=== PATIENT | female | born 1940 | race Caucasian/White ===

== ENCOUNTER → 2016-09-16 | Outpatient (CLI) | payer MEDICARE, OTHER ==
[2016-09-16 08:31] LABS: Basophils # (auto) 0 uL; Basophils % (auto) 0.3 % (0.0-2.0); Eosinophils # (auto) 0.5 uL; Eosinophils % (auto) 6.3 % (0.0-7.0); Hematocrit 39.5 % (36.0-46.0); Hemoglobin 13.1 g/dL (12.2-16.2); Lymphocytes % (auto) 12.3 % (10.0-50.0); Mean Corpuscular Hgb Conc. 33.1 g/dL (32.0-36.0); Mean Corpuscular Volume 87.4 fL (80.0-100.0); Mean Platelet Volume 8.5 fL (7.4-10.4); Monocytes # (auto) 0.5 uL; Monocytes % (auto) 5.9 % (0.0-12.0); Neutrophils # (auto) 6.3 uL; Neutrophils % (auto) 75.2 % (37.0-80.0); Platelet Count (auto) 455 10^3/uL (140-450); Red Cell Distribution Width 14.1 % (11.6-16.0); White Blood Cell 8.3 10^3/uL (4.4-10.8)
[2016-09-16 09:08] LABS: Albumin 3.4 g/dL (3.4-5.0); BUN/Creatinine Ratio 21.3; Bilirubin, Total 0.4 mg/dL (0.2-1.0); Calcium 8.8 mg/dL (8.5-10.1); Total Protein 7.4 g/dL (6.4-8.2); Uric Acid 3.5 mg/dL (2.6-6.0)
== END | disposition home or self-care (01) ==
LOC: LAB 07:19
PROVIDERS: ATTEND Internal Medicine
DX: E78.5 Hyperlipidemia, unspecified (principal); M25.569 Pain in unspecified knee; F32.9 Major depressive disorder, single episode, unspecified
CPT/HCPCS: 36415; 80053; 80061; 82043; 84439; 84443; 84550; 85025

== ENCOUNTER → 2017-01-15 | Outpatient (CLI) | payer MEDICARE, OTHER | END | disposition home or self-care (01) | LOC: LAB 08:32 | PROVIDERS: ATTEND Internal Medicine | DX: D47.3 Essential (hemorrhagic) thrombocythemia (principal) | CPT/HCPCS: 36415 ==

== ENCOUNTER → 2017-02-13 | Outpatient (CLI) | payer MEDICARE, OTHER ==
[2017-02-13 10:14] LABS: Basophils # (auto) 0 uL; Basophils % (auto) 0.3 % (0.0-2.0); CONDITION Y; Eosinophils # (auto) 0.3 uL; Eosinophils % (auto) 2.8 % (0.0-7.0); Hematocrit 38.1 % (36.0-46.0); Hemoglobin 12.7 g/dL (12.2-16.2); Lymphocytes # (auto) 1.3 uL; Mean Corpuscular Hemoglobin 28.8 pg (28.0-32.0); Mean Corpuscular Hgb Conc. 33.3 g/dL (32.0-36.0); Mean Corpuscular Volume 86.5 fL (80.0-100.0); Mean Platelet Volume 7.8 fL (7.4-10.4); Monocytes # (auto) 0.6 uL; Neutrophils % (auto) 77.9 % (37.0-80.0); Platelet Count (auto) 464 10^3/uL (140-450); White Blood Cell 10.3 10^3/uL (4.4-10.8)
[2017-02-13 10:30] LABS: Albumin 3.4 g/dL (3.4-5.0); BUN/Creatinine Ratio 15.7; Bilirubin, Total 0.5 mg/dL (0.2-1.0); Calcium 8.8 mg/dL (8.5-10.1); Potassium 4.6 mmol/L (3.5-5.1); Total Protein 8.2 g/dL (6.4-8.2)
[2017-02-13 11:56] LABS: Wright Stain Ready for Review
== END | disposition home or self-care (01) ==
LOC: LAB 09:40
PROVIDERS: ATTEND Internal Medicine
DX: D47.3 Essential (hemorrhagic) thrombocythemia (principal); I10 Essential (primary) hypertension
CPT/HCPCS: 36415; 80053; 82728; 83540; 83550; 83615; 85025; 85652; 86141

== ENCOUNTER → 2017-02-25 | Outpatient (CLI) | payer MEDICARE, OTHER | END | disposition home or self-care (01) | LOC: LAB 09:55 | PROVIDERS: ATTEND Internal Medicine | DX: D69.1 Qualitative platelet defects (principal); R97.8 Other abnormal tumor markers | CPT/HCPCS: 82105 ==

== ENCOUNTER 2019-04-07 13:43 | Inpatient (IN) | payer MEDICARE, OTHER ==
[~2019-04-07] VITALS: Ht 154.9 cm; Wt 64.8 kg
[2019-04-07] MEDS ORDERED: SODIUM CHLORIDE 0.9% 1,000 ML IV ONE (15:16)
[2019-04-07] MEDS ORDERED: ONDANSETRON HCL 4 MG/2 ML VIAL IV ONE (16:15)
[2019-04-07] MEDS ORDERED: MORPHINE SULFATE 4 MG/ML SYR/VIAL IV ONE (16:15)
[2019-04-07 16:17] LABS: Alanine Aminotransferase 19 U/L (13-56); Albumin 3.2 g/dL (3.4-5.0); Anion Gap 4 (5-15); Blood Urea Nitrogen 27 mg/dL (7-18); Calcium 8.8 mg/dL (8.5-10.1); Carbon Dioxide 27 mmol/L (21-32); Chloride 108 mmol/L (98-107); Glucose 103 mg/dL (74-106); Potassium 4.7 mmol/L (3.5-5.1); Sodium 139 mmol/L (136-145)
[2019-04-07 16:18] LABS: INR < 0.93 (0.9-1.15); Partial Thromboplastin Time 25.6 sec (23.64-32.05)
[2019-04-07 16:22] LABS: Alkaline Phosphatase 98 U/L (45-117); Aspartate Aminotransferase 21 U/L (15-37); BUN/Creatinine Ratio 27.3; Bilirubin, Total 0.3 mg/dL (0.2-1.0); GFR African American 70 mL/min; GFR Non-African American 58 mL/min; Total Protein 7.2 g/dL (6.4-8.2)
[2019-04-07 16:26] LABS: Basophils # (auto) 0 uL; Basophils % (auto) 0.1 % (0.0-2.0); Eosinophils # (auto) 0 uL; Lymphocytes # (auto) 0.5 uL; Lymphocytes % (auto) 2.3 % (10.0-50.0); Red Cell Distribution Width 15.5 % (11.8-14.3); White Blood Cell 21.4 10^3/uL (4.4-10.8)
[2019-04-07 16:31] LABS: Hematocrit 36.5 % (36.0-46.0); Mean Corpuscular Hemoglobin 30.1 pg (28.0-32.0); Mean Corpuscular Hgb Conc. 32.9 g/dL (32.0-36.0); Mean Corpuscular Volume 91.3 fL (80.0-100.0); Monocytes # (auto) 0.5 uL; Monocytes % (auto) 2.3 % (0.0-12.0); Neutrophils # (auto) 20.4 uL; Neutrophils % (auto) 95.3 % (37.0-80.0); Platelet Count (auto) 457 10^3/uL (140-450); Red Blood Cells 3.99 10^6/uL (4.0-5.20)
[2019-04-07] MEDS ORDERED: HYDROmorphone HCL 2 MG/ML VL IV ONE (17:00)
[2019-04-07] MEDS: SODIUM CHLORIDE 0.9% 1,000 ML IV SCH (19:04)
[2019-04-07] MEDS ORDERED: PROMETHAZINE HCL 25 MG/ML 1ML IV PRN (19:15)
[2019-04-07] MEDS ORDERED: HYDROcodone-ACET 5/325MG TAB PO PRN (19:15)
[2019-04-07] MEDS ORDERED: ACETAMINOPHEN 500 MG TAB PO PRN (19:15)
[2019-04-07] MEDS ORDERED: cefTRIAXone 1GM/50ML D5W 50 ML IV ONE (19:30)
[2019-04-07 19:34] VITALS: BP 144/76
--- NOTE | 2019-04-07 20:00 | NUR ---
MS admit from ER RADAMES FAY admitted to tele/MS after SBAR received. Patient oriented to BLAKE MORGAN RN primary RN, unit, room, bed, and unit policies regarding patient care and visiting hours. No s/s of distress or SOB noted. Patient complains of pain to her right hip. Will medicate patient as ordered. Bed locked, left in lowest position with side rails up x2. Call light left within reach. Patient weighed by bedscale and encouraged to call if they need something. All questions and concerns addressed, patient verbalized understanding. Will continue to monitor Q 1hr and PRN. Note:
--- NOTE | 2019-04-07 22:01 | NUR ---
Med Rec and Advanced Directives Patients family will bring in list of medications and Advanced Directive in the morning.
[2019-04-07] MEDS: MORPHINE SULFATE 4 MG/ML SYR/VIAL IV PRN (22:15)
--- NOTE | 2019-04-07 23:08 | NUR ---
Respiratory note: ASSESSED PT FOR PRN MED NEB TX. PT IS CURRENTLY ON 2 L/M NC: HR 78, RR 18, SPO2 96%. PT SHOWS NO S/S OF SOB OR RESPIRATORY DISTRESS. MED NEB TX NOT INDICATED AT THIS TIME. WILL CONTINUE TO MONITOR.
[2019-04-08] MEDS ORDERED: HYDROmorphone HCL 2 MG/ML VL IV ONE (02:45)
[2019-04-08 05:00] VITALS: BP 158/74
[2019-04-08] MEDS: SODIUM CHLORIDE 0.9% 1,000 ML IV SCH ×2 (05:04→15:04)
[2019-04-08] MEDS: MORPHINE SULFATE 4 MG/ML SYR/VIAL IV PRN (06:24)
--- NOTE | 2019-04-08 07:45 | NUR ---
Opening Shift Note Assumed care of patient, awake and alert. No S/S of distress/SOB, 10/10 right hip pain. Patient been medicated with Morphine IV, will medicate with [place] PO as ordered. Instructed on POC and to call for assist PRN, will continue to monitor for changes Q1hr and PRN.
--- NOTE | 2019-04-08 08:19 | NUR ---
Patient stated no relief of pain on the right hip 04/21. Morphine IV and [place] PO have been given but no relief. call or contact centre operator hospitalist Dr. Chan paged and returned call. Orders received. Will continue care.
[2019-04-08 09:00] VITALS: BP 137/83
--- NOTE | 2019-04-08 09:40 | NUR ---
REPORT RECEIVED REPORT FROM NATE ARGUETA. PATIENT AWAKE AND ALERT. BED LOW/LOCKED POSITION, BED RAILS UP X2. WILL CONTINUE TO MONITOR
[2019-04-08] MEDS: cefTRIAXone 1GM/50ML D5W 50 ML IV SCH (09:41)
[2019-04-08] MEDS: PANTOPRAZOLE 40 MG TAB PO SCH (09:41)
[2019-04-08] MEDS: HYDROmorphone HCL 2 MG/ML VL IV PRN ×2 (09:42→13:44)
--- NOTE | 2019-04-08 10:03 | NUR ---
Respiratory note: ASSESSED PT FOR PRN MED NEB TX. PT IS CURRENTLY ON 2 L/M NC: HR 76, RR 18, SPO2 95%. PT SHOWS NO S/S OF SOB OR RESPIRATORY DISTRESS. MED NEB TX NOT INDICATED AT THIS TIME. WILL CONTINUE TO MONITOR.
--- NOTE | 2019-04-08 11:41 | NUR ---
MD ROUNDS DR CAMARA AT BEDSIDE DISCUSSING POC WITH PATIENT AND FAMILY. ALL QUESTIONS/CONCERNS ANSWERED. NEW ORDERS RECEIVED/CARRIED OUT. WILL CONTINUE TO MONITOR.
[2019-04-08 11:56] LABS: Urine Bacteria NONE SEEN /hpf (None Seen); Urine Blood Negative /uL (Negative); Urine WBC 1 /hpf (0 - 5)
[2019-04-08 13:00] VITALS: BP 133/74
[2019-04-08] MEDS ORDERED: LORA1TAB12 PO (13:02)
[2019-04-08] MEDS ORDERED: MIRT30TA OR (13:08)
[2019-04-08] MEDS ORDERED: BUPR-40 PO (13:08)
[2019-04-08] MEDS ORDERED: PERCOT PO (13:08)
[2019-04-08] MEDS ORDERED: ATOR40TA52 PO (13:08)
[2019-04-08] MEDS ORDERED: FOLI1TAB6 PO (13:08)
[2019-04-08] MEDS ORDERED: VENL150C2 PO (13:08)
[2019-04-08] MEDS ORDERED: MULTTAB5 OR (13:08)
[2019-04-08] MEDS ORDERED: HYDROmorphone HCL 2 MG/ML VL IV PRN ×2 (14:45→16:30)
[2019-04-08] MEDS ORDERED: fentaNYL CITRATE 100 MCG/2 ML VL ONE (15:41)
[2019-04-08] MEDS ORDERED: HYDROmorphone HCL 2 MG/ML VL ONE (15:41)
[2019-04-08] MEDS ORDERED: SODIUM CHLORIDE LOCK 10 ML ONE ×2 (15:41→18:33)
[2019-04-08] MEDS ORDERED: LIDOCAINE 2% (LOCAL ANESTH.) PF 5ml SDV ONE (15:41)
[2019-04-08] MEDS ORDERED: fentaNYL CITRATE 10 ML ONE (15:41)
[2019-04-08] MEDS ORDERED: ETOMIDATE (2MG/ML) 20ML VIAL IV ONE (15:41)
[2019-04-08] MEDS ORDERED: MIDAZOLAM HCL 1MG/1ML-2 ML VIAL ONE (15:41)
[2019-04-08] MEDS ORDERED: ONDANSETRON HCL 4 MG/2 ML VIAL ONE (15:41)
[2019-04-08] MEDS ORDERED: LIDOCAINE HCL 2% TOP JELLY 5ML TOP ONE (15:41)
[2019-04-08] MEDS ORDERED: LORazepam 2MG/ML-1ML VIAL IV ONE (15:45)
[2019-04-08] MEDS ORDERED: LORazepam 2MG/ML-1ML VIAL ONE (15:49)
--- NOTE | 2019-04-08 16:10 | NUR ---
OFF UNIT PATIENT TAKEN TO OR
[2019-04-08] MEDS ORDERED: CLINDAMYCIN 600MG IV 50 ML IV ONE (16:16)
[2019-04-08] MEDS ORDERED: ROCURONIUM 10MG/ML 10ML VIAL IV ONE (16:23)
[2019-04-08] MEDS ORDERED: SUCCINYLCHOLINE CHLORIDE 20 MG/ML 10ML VIAL IV ONE (16:23)
[2019-04-08] MEDS ORDERED: fentaNYL CITRATE 100 MCG/2 ML VL IV PRN (16:30)
[2019-04-08] MEDS ORDERED: ONDANSETRON HCL 4 MG/2 ML VIAL IV PRN (16:30)
[2019-04-08] MEDS ORDERED: MORPHINE SULFATE 4 MG/ML SYR/VIAL IV PRN (16:30)
[2019-04-08 17:00] VITALS: BP 138/74
[2019-04-08] MEDS ORDERED: HYDROcodone-ACET 10/325MG TAB PO PRN (18:15)
--- NOTE | 2019-04-08 18:54 | NUR ---
REPORT ENDORSED CARE TO NIGHT RN. PATIENT STILL DOWN IN O.R.
[2019-04-08] MEDS ORDERED: NALOXONE HCL 0.4 MG/ML VIAL ONE (18:58)
[2019-04-08] MEDS ORDERED: ACETAMINOPHEN IV 100 ML IV ONE (19:06)
[2019-04-08] MEDS ORDERED: ACETYLCYSTEINE 10 %(100MG/ML) SOL 4ML NEB ONE (19:15)
[2019-04-08] MEDS ORDERED: ACETAMINOPHEN IV 1000 MG/100ML (10MG/ML) IV ONE (19:15)
[2019-04-08] MEDS ORDERED: IPRATROPIUM BROM 0.5 MG/2.5ML INH SOL NEB ONE (19:15)
[2019-04-08] MEDS ORDERED: MORPHINE SULF INJ 2 MG/ML SYRINGE 1ML ONE (19:16)
--- NOTE | 2019-04-08 19:50 | NUR ---
PATIENT RETURNED FROM OR Patient brought up from OR. Patient drowsy but easily arousable to name. Patient able to follow commands. VS upon arrival BP 103/73, temp 98.6, HR 102, RR 12, O2 sat 98% on 3L via NC. Dressing to right hip clean, dry, and intact. Pulse to right foot palpable, warm to touch, sensation and motor intact. Will continue to monitor patient.
[2019-04-08] MEDS: CLINDAMYCIN 600MG IV 50 ML IV SCH (21:40)
[2019-04-08 22:11] VITALS: BP 91/52
[2019-04-09] MEDS: LEVALBUTEROL HCL 1.25 MG/3 ML NEB NEB SCH ×5 (00:19→23:59)
--- NOTE | 2019-04-09 00:30 | NUR ---
IV insertion IV to left AC was leaking. IV removed. New IV placed via clean sterile technique by inserting 22 gauge catheter at left forearm after 1 attempt. IV secured properly. No trauma to site. Patient tolerated well.
[2019-04-09] MEDS: HYDROmorphone HCL 2 MG/ML VL IV PRN ×9 (00:54→23:34)
[2019-04-09] MEDS: SODIUM CHLORIDE 0.9% 1,000 ML IV SCH ×3 (02:13→18:28)
[2019-04-09 04:59] VITALS: BP 133/68
[2019-04-09] MEDS: CLINDAMYCIN 600MG IV 50 ML IV SCH ×2 (05:38→14:13)
--- NOTE | 2019-04-09 07:25 | NUR ---
Opening Shift Note Assumed care of patient, awake and alert, resting in bed. No S/S of distress/SOB or pain. Instructed on POC and to call for assist PRN, call light within reach and bed in lowest position. Will continue to monitor for changes Q1hr and PRN.
[2019-04-09 08:00] VITALS: BP 127/63
[2019-04-09 08:34] LABS: Hematocrit 34.8 % (36.0-46.0); Hemoglobin 11.2 g/dL (12.2-16.2)
[2019-04-09] MEDS: PANTOPRAZOLE 40 MG TAB PO SCH (09:15)
[2019-04-09] MEDS: cefTRIAXone 1GM/50ML D5W 50 ML IV SCH (09:15)
[2019-04-09] MEDS: DOCUSATE SOD 100 MG CAP PO PRN (09:16)
[2019-04-09] MEDS: ENOXAPARIN SOD 40 MG/0.4 ML SYRINGE SC SCH (09:17)
--- NOTE | 2019-04-09 09:52 | NUR ---
Dr. Treva Olivarez bedside with patient discussing plan of care.
--- NOTE | 2019-04-09 09:55 | NUR ---
Talked to Dr. Treva Olivarez about patient having a hard time sleeping in hospital at night. Dr. Treva Olivarez gave orders for sleeping aid, Restoril, prn. Placed order per Dr. Treva Daily order request.
[2019-04-09] MEDS ORDERED: TEMAZEPAM 15 MG CAP PO PRN (11:30)
[2019-04-09 12:00] VITALS: BP 104/59
--- NOTE | 2019-04-09 16:55 | NUR ---
Paged Hospitalist regarding patient being anxious and wanting a prn for anxiety. Addendum: 04/09/19 at 1822 by CATHY SANZ RN RN Incorrect page time of [phone], Hospitalist was paged at [phone]
[2019-04-09 17:00] VITALS: BP 112/71
--- NOTE | 2019-04-09 17:50 | NUR ---
Hospitalist, Dr. Mino Sahni, returned my call and provided orders for anxiety medication for patient. Orders submitted.
[2019-04-09] MEDS: LORazepam 0.5 MG TAB PO PRN (17:58)
--- NOTE | 2019-04-09 19:30 | NUR ---
Opening Shift Note Assumed care of patient. Patient awake and alert. No S/S of distress/SOB or pain. Instructed on POC and to call for assist PRN, will continue to monitor for changes. Bed locked in lowest position and bed rails up x2. Call light within reach.
[2019-04-09 23:11] VITALS: BP 120/58
--- NOTE | 2019-04-09 23:59 | NUR ---
RT NOTE PT REQUESTED NOT TO BE WAKEN UP FOR 0000 BREATHING TX. CHECKED ON PT SHE WAS SLEEPING NO RESP DISTRESS NOTED.
[2019-04-10] VITALS (7 sets, daily range): BP systolic 114–169; BP diastolic 54–85
[2019-04-10] MEDS: HYDROmorphone HCL 2 MG/ML VL IV PRN ×6 (02:20→23:41)
[2019-04-10] MEDS: LORazepam 0.5 MG TAB PO PRN ×2 (05:16→12:46)
--- NOTE | 2019-04-10 05:50 | NUR ---
Patient showing signs of respiratory distress. Wheezing noted upon audible auscultation. RT paged for PRN breathing treatment
[2019-04-10] MEDS: LEVALBUTEROL HCL 1.25 MG/3 ML NEB NEB SCH ×3 (05:54→18:47)
--- NOTE | 2019-04-10 05:55 | NUR ---
Daughter called to check on patients status
--- NOTE | 2019-04-10 06:00 | NUR ---
RT at bedside with breathing tx
[2019-04-10] MEDS: SODIUM CHLORIDE 0.9% 1,000 ML IV SCH ×2 (07:04→19:56)
--- NOTE | 2019-04-10 07:15 | NUR ---
Opening Shift Note Assumed care of patient, awake and alert. No S/S of distress/SOB or pain. Instructed on POC and to call for assist PRN, call light within reach and bed in lowest position. Will continue to monitor for changes Q1hr and PRN.
[2019-04-10 07:44] LABS: Hematocrit 27.9 % (36.0-46.0); Hemoglobin 9.3 g/dL (12.2-16.2); Mean Corpuscular Hemoglobin 30.5 pg (28.0-32.0); Mean Corpuscular Hgb Conc. 33.4 g/dL (32.0-36.0); Mean Corpuscular Volume 91.5 fL (80.0-100.0); Platelet Count (auto) 238 10^3/uL (140-450); Red Blood Cells 3.05 10^6/uL (4.0-5.20); Red Cell Distribution Width 14.8 % (11.8-14.3)
[2019-04-10 07:53] LABS: Potassium 4.7 mmol/L (3.5-5.1)
[2019-04-10 08:01] LABS: Albumin 2.3 g/dL (3.4-5.0); BUN/Creatinine Ratio 17.4; Bilirubin, Total 0.4 mg/dL (0.2-1.0); Calcium 8.2 mg/dL (8.5-10.1); Total Protein 5.7 g/dL (6.4-8.2)
--- NOTE | 2019-04-10 08:11 | NUR ---
Received critical lab value call from lab, WBC 31.1. Paged Hospitalist.
[2019-04-10 08:12] LABS: White Blood Cell 31.1 10^3/uL (4.4-10.8)
[2019-04-10 08:14] LABS: Basophils % (manual) 0 (0.0-2.0); Blast Cells 0; Eosinophils % (manual) 0 (0-7); Metamyelocytes % 0; Promyelocytes % 0; Reactive Lymphocytes 0
[2019-04-10] MEDS: PANTOPRAZOLE 40 MG TAB PO SCH (09:15)
[2019-04-10] MEDS: cefTRIAXone 1GM/50ML D5W 50 ML IV SCH (09:15)
[2019-04-10] MEDS: ENOXAPARIN SOD 40 MG/0.4 ML SYRINGE SC SCH (09:15)
--- NOTE | 2019-04-10 10:16 | NUR ---
Dr. Treva Olivarez bedside with patient and patient's daughter Geovanna discussing plan of care.
[2019-04-10] MEDS ORDERED: VANCOMYCIN PER PHARMACY 0 MG IV SCH (10:30)
[2019-04-10] MEDS ORDERED: VANCOMYCIN 1GM/250ML 250 ML IV ONE (10:30)
--- NOTE | 2019-04-10 10:35 | NUR ---
Per Dr. Treva Olivarez's request, contacted drug abuse social worker regarding consult. Patient would like to go to [facility] for rehab. Per drug abuse social worker, they will consult with patient tomorrow.
[2019-04-10] MEDS: VANCOMYCIN 1GM/250ML 250 ML IV SCH (12:46)
[2019-04-10 13:58] LABS: Lymphocytes % (manual) 2 (10.0-50.0); Monocytes % (manual) 3 (0-12); Myelocytes % 6
[2019-04-10 13:59] LABS: Band Neutrophils % (manual) 30
--- NOTE | 2019-04-10 17:28 | NUR ---
Ultrasound called, patient is going for Abdominal US tonight around 9, asked to hold food and water.
[2019-04-10] MEDS: guaiFENesin-CODEINE LIQUID 5 ML UD PO SCH ×2 (18:30→22:01)
--- NOTE | 2019-04-10 18:46 | NUR ---
CHILD NEUROLOGIST reported bp of 169/58 during vital sign check, rechecked bp and recorded 148/85.
--- NOTE | 2019-04-10 19:30 | NUR ---
Opening Shift Note Assumed care of patient. Patient awake and alert. No S/S of pain. Instructed on POC and to call for assist PRN, will continue to monitor for changes. Bed locked in lowest position and bed rails up x2. Call light within reach.
--- NOTE | 2019-04-10 23:00 | NUR ---
Pain medication given for pain and patient repositioned in bed to help relieve any pressure or pain caused by positioning in bed.
[2019-04-11] VITALS (9 sets, daily range): BP systolic 104–142; BP diastolic 49–65
[2019-04-11] MEDS: LEVALBUTEROL HCL 1.25 MG/3 ML NEB NEB SCH ×4 (00:19→18:07)
--- NOTE | 2019-04-11 01:10 | NUR ---
Patient states she is feeling SOB and if she could possibly receive a breathing treatment. RT paged and notified.
[2019-04-11] MEDS: ALBUTEROL SULF 2.5 MG/0.5ML(0.5%) NEB SOLN NEB PRN ×2 (01:18→21:20)
--- NOTE | 2019-04-11 01:18 | NUR ---
RT at bedside. Patient currently receiving breathing tx and states that the breathing treatment seemed to help. Patient denies other symptoms and anxiety.
--- NOTE | 2019-04-11 01:19 | NUR ---
Respiratory note: PT CURRENTLY ON NC3L. SPO2 97%, HR 103, RR 24. PT IS SOB AND LABORED BREATHING. XOPENEX TX WAS GIVEN AT 0019 1 HOUR PRIOR. ALBUTEROL 2.5MG ADMINISTERED WITH NO COMPLICATIONS NOTED. SPOKE TO PT ABOUT HOW THE TX WAS EFFECTIVE AND PT STATES SHE IS FEELING BETTER AFTER TX.
[2019-04-11] MEDS: SODIUM CHLORIDE 0.9% 1,000 ML IV SCH ×3 (03:04→23:04)
--- NOTE | 2019-04-11 05:20 | NUR ---
Repositioned patient with pillows placed under right side for comfort. Skin intact and blanchable.
[2019-04-11] MEDS: HYDROmorphone HCL 2 MG/ML VL IV PRN ×6 (05:26→22:42)
--- NOTE | 2019-04-11 05:30 | NUR ---
Dressing changed per orders. Wound well approximated with hailey intact and no drainage. Patient tolerated well.
[2019-04-11] MEDS: guaiFENesin-CODEINE LIQUID 5 ML UD PO SCH ×3 (05:47→22:00)
[2019-04-11 06:07] LABS: Hematocrit 23.7 % (36.0-46.0)
[2019-04-11 06:24] LABS: Potassium 3.8 mmol/L (3.5-5.1)
[2019-04-11 06:30] LABS: Albumin 2.1 g/dL (3.4-5.0); BUN/Creatinine Ratio 12.5; Bilirubin, Total 0.4 mg/dL (0.2-1.0); Total Protein 5.6 g/dL (6.4-8.2)
--- NOTE | 2019-04-11 07:20 | NUR ---
Opening Shift Note Assumed care of patient, sleeping in bed, no S/S of distress/SOB or pain. Call light within reach and bed in lowest position, will continue to monitor for changes Q1hr and PRN.
[2019-04-11] MEDS: cefTRIAXone 1GM/50ML D5W 50 ML IV SCH (08:30)
[2019-04-11 08:57] LABS: % Iron Saturation 5.6 % (15-50)
--- NOTE | 2019-04-11 09:04 | NUR ---
04/10/19 Pt worked on bedside ther ex prior to getting out of bed. Pt was able to complete x10 reps for each exercise. Pt worked on ankle pumps, heel slides, gluteal squeezes, hip abd/add. Pt needs a lot of encouragement and positive reinforcement to complete tasks. Pt is afraid and was starting to experience a panic attack, pt's nurse made aware. Addendum: 04/11/19 at 0907 by Lupe Kim PT Amended: Links added.
[2019-04-11 09:50] LABS: Urine Bacteria FEW /hpf (None Seen); Urine Blood 1+ /uL (Negative); Urine Specific Gravity 1.013 (1.001-1.035); Urine WBC 3 /hpf (0 - 5)
[2019-04-11] MEDS: PANTOPRAZOLE 40 MG TAB PO SCH (09:53)
[2019-04-11] MEDS: ENOXAPARIN SOD 40 MG/0.4 ML SYRINGE SC SCH (09:54)
[2019-04-11] MEDS: DOCUSATE SOD 100 MG CAP PO PRN (10:12)
--- NOTE | 2019-04-11 10:54 | NUR ---
Dr. Treva Olivarez bedside with patient.
[2019-04-11] MEDS: VANCOMYCIN 1GM/250ML 250 ML IV SCH (11:32)
[2019-04-11 11:41] LABS: Ferritin 699.6 ng/mL (10-322)
[2019-04-11 11:43] LABS: Folate (Folic Acid) 9.62 ng/mL (5.38-24)
[2019-04-11] MEDS: LORazepam 0.5 MG TAB PO PRN (14:42)
--- NOTE | 2019-04-11 14:43 | NUR ---
D/C Planning Per consult for SNF placement for rehab. Information and choice letter was given to Pt at bedside. Pt requested [facility]. Pt verbalize understanding d/c plan. Contacted [facility] ph:) Fax:) faxed medical records. Per Jacqueline from [facility] Pt has been accepted to room [address] MD Dr[address] Lucas. Will set up transportation upon d/c day. Addendum: 04/11/19 at 1447 by TOMAS ONEAL Amended: Links added.
--- NOTE | 2019-04-11 15:01 | NUR ---
Assessment Pt is a 78 yr old alert and oriented female. Pt admitted due to a fall at home. Pt had surgery on her hip. Prior to admit, pt was living with her daughter Geovanna Pete, who is her emergency contact and POA at [phone]. Prior to fall, Pt was independent with ADL's, cooking and cleaning. Pt also has malignant neoplasm of the brain which she has been doing chemo for for 3 weeks. Pt has been very accepting of her cancer diagnosis but has had a hard time coping with the pain from her hip injury. Pt will d/c to [facility], possibly tomorrow, for PT and rehab. Pt is scared to go to [facility] because she is in a lot of pain and is worried that they will let her "wallow in her pain" and be inattentive. SW helped pt process her feelings and discussed the importance of self-advocating for her needs. Pt's son, Wero, was in the room during the initial assessment and stated that she can reach out to multiple family members and they will also help advocate for her. SW educated pt on the use of a SW at the other facility and encouraged her to reach out to the SW at [facility] if she has any issues to discuss. Pt's Primary is Dr Jennings. Pt will d/c to [facility] upon medical clearance. Transportation needs will be met by the [facility]. Addendum: 04/11/19 at 1517 by ALLY MASSEY SS Amended: Links added.
--- NOTE | 2019-04-11 15:58 | NUR ---
TT Dr. Treva Olivarez regarding patients IV failing and requested a Midline. He said to go ahead with the Midline and order 2 units of PRBC's to be transfused today. Dr. Olivarez is aware of the patients hgb of 8.0. Placed orders per Dr. Daily request.
--- NOTE | 2019-04-11 17:35 | NUR ---
Paged Dr. Sahni, patient having an anxiety attack and having a hard time breathing. Orders received and carried out.
[2019-04-11] MEDS ORDERED: LORazepam 2MG/ML-1ML VIAL IV ONE (18:00)
--- NOTE | 2019-04-11 19:30 | NUR ---
RECEIVED PATIENT, AWAKE, ALERT, ORIENTED X3-4. DAUGHTER AT BEDSIDE. PATIENT IS TACHYPNEIC WITH AUDIBLE WHEEZES NOTED, ON 3 LPM VIA NC SATURATING AT 97-100%. ORIENTED ON PLAN OF CARE. BED IS LOCKED AND IN LOWEST POSITION, SIDE RAILS UP X2, BED ALARM ON, CALL LIGHT WITHIN REACH. WILL CONTINUE TO MONITOR.
--- NOTE | 2019-04-11 19:50 | NUR ---
UNABLE TO START BLOOD TRANSFUSION, IV IS LEAKING
--- NOTE | 2019-04-11 20:30 | NUR ---
DAUGHTER DUTCH AT BEDSIDE, PER DAUGHTER PT HAD IV CHEMO LAST THURSDAY AND BEEN RECEIVING IT FOR FOR ALMOST A YEAR NOW. SHE WAS CONCERNED ABOUT HER MOTHER NOT HAVING GOOD APPETITE AND BEING DISCHARGED ON SNF POSSIBLY TOMORROW. INFORMED DUTCH WILL INFORM HOSPITALIST RE: HER CONCERN. ALSO SHE STATED PT HAS AN ADVANCE DIRECTIVE AND IS A DNR. FLOR,PRIMARY RN REQUESTED A COPY OF THE ADVANCE DIRECTIVE , SHE VERBALIZES UNDERSTANDING AND STATED SHE WILL BRING A COPY.
--- NOTE | 2019-04-11 21:25 | NUR ---
PAGED HOSPITALIST FOR INCREASING SOB WITH WHEEZES, NOT RELIEVED BREATHING TREATMENT RECEIVED ORDER FROM KANDIS ZHANG; SOLUMEDROL 125 MG IV ONCE
[2019-04-11] MEDS ORDERED: methylPREDNISolone SOD SUCC 125 MG/2 ML VL IV ONE (21:45)
[2019-04-12] VITALS (7 sets, daily range): BP systolic 112–147; BP diastolic 53–78
[2019-04-12] MEDS: LEVALBUTEROL HCL 1.25 MG/3 ML NEB NEB SCH ×4 (00:52→18:30)
[2019-04-12 02:44] LABS: Albumin 2.2 g/dL (3.4-5.0); BUN/Creatinine Ratio 13.1; Calcium 8.3 mg/dL (8.5-10.1)
[2019-04-12 02:47] LABS: Bilirubin, Total 0.4 mg/dL (0.2-1.0); Total Protein 6.1 g/dL (6.4-8.2)
[2019-04-12 02:48] LABS: Hematocrit 31.2 % (36.0-46.0); Hemoglobin 10.7 g/dL (12.2-16.2)
--- NOTE | 2019-04-12 02:48 | NUR ---
PAGED HOSPITALIST FOR LATEST HEMOGLOBIN RESULT.
--- NOTE | 2019-04-12 03:00 | NUR ---
RECEIVED ORDER FROM KANDIS ZHANG TO HOLD 2ND UNIT OF PRBC'S UPDATED WITH PATIENT'S CONDITION; RECEIVED ORDER TO ADD ATROVENT 0.5 MG NEB Q6H PRN FOR SOB
[2019-04-12] MEDS: LORazepam 0.5 MG TAB PO PRN ×2 (04:50→17:24)
[2019-04-12] MEDS: HYDROmorphone HCL 2 MG/ML VL IV PRN ×3 (05:22→12:24)
[2019-04-12] MEDS: guaiFENesin-CODEINE LIQUID 5 ML UD PO SCH ×3 (06:06→21:37)
[2019-04-12] MEDS: IPRATROPIUM BROM 0.5 MG/2.5ML INH SOL NEB PRN ×3 (06:09→18:30)
--- NOTE | 2019-04-12 07:43 | NUR ---
CARE ENDORSED TO AM SHIFT RN
--- NOTE | 2019-04-12 08:00 | NUR ---
OPENING NOTE Assumed care of patient, awake and alert. No S/S of distress/SOB. Patient complaint of 9/10 pain in right hip. Will medicate patient as ordered. Patient instructed on POC and to call for assist PRN, will continue to monitor for changes Q1hr and PRN.
[2019-04-12] MEDS: SODIUM CHLORIDE 0.9% 1,000 ML IV SCH ×2 (09:04→19:04)
[2019-04-12] MEDS: PANTOPRAZOLE 40 MG TAB PO SCH (09:48)
[2019-04-12] MEDS: ENOXAPARIN SOD 40 MG/0.4 ML SYRINGE SC SCH (09:49)
[2019-04-12] MEDS: cefTRIAXone 1GM/50ML D5W 50 ML IV SCH (09:50)
[2019-04-12 10:03] LABS: Hematocrit 31.1 % (36.0-46.0)
[2019-04-12] MEDS: ONDANSETRON HCL 4 MG/2 ML VIAL IV PRN (10:24)
--- NOTE | 2019-04-12 10:45 | NUR ---
Dr. Olivarez at bedside with patient.
[2019-04-12] MEDS: VANCOMYCIN 1GM/250ML 250 ML IV SCH (12:23)
--- NOTE | 2019-04-12 14:09 | NUR ---
Estimated needs based on AJBW 52 kg for increased needs/geriatric needs 1996-9005 kcal (30-35 kcal/kg) 62-73 g protein (1.2-1.4 g/kg) Addendum: 04/12/19 at [address] Amended: Links added.
[2019-04-12] MEDS ORDERED: predniSONE 20 MG TAB PO ONE (15:00)
--- NOTE | 2019-04-12 15:00 | NUR ---
Spoke to Hospitalist regarding IV Patient c/o pain to IV site, IV's removed with catheter intact. Patient refusing to have another IV insertion at this time, she states "you will not touch me again and put more IVs I have had too many already the whole time [place] been here" I spoke to Dr Olivarez and he states okay for patient to not have IV today and she will be transferred to SNF tomorrow. Cont care
[2019-04-12] MEDS: HYDROcodone-ACET 10/325MG TAB PO PRN ×3 (15:18→23:57)
[2019-04-12] MEDS: Ensure Pudding Vanilla 4 oz Cup PO SCH (18:00)
--- NOTE | 2019-04-12 19:00 | NUR ---
Opening Shift Note Assumed care of patient, awake and alert. No S/S of distress/SOB or pain. Instructed on POC and to call for assist PRN, will continue to monitor for changes Q1hr and PRN.
[2019-04-13 00:10] VITALS: BP 136/70
[2019-04-13] MEDS: LORazepam 0.5 MG TAB PO PRN ×2 (01:33→12:05)
--- NOTE | 2019-04-13 01:48 | NUR ---
Hospitalist paged: Patient complaining of severe breakthrough pain and requesting pain medication. [place] was recently given and resolved pain but pain has returned.
--- NOTE | 2019-04-13 02:10 | NUR ---
IV insertion IV access to right hand obtained, via clean sterile technique by inserting 20 gauge catheter after first attempt. IV secured properly. No trauma to site. Patient tolerated well.
--- NOTE | 2019-04-13 02:29 | NUR ---
Hospitalist returned page: Hospitalist updated on patient condition and situation. Patient states that her [place] is not managing her pain and she is agony at this time. Patient states she is in severe pain d/t her cancer and her recent surgery. Patient noted to be expressing some tears related to her pain. New orders received and verified.
[2019-04-13] MEDS: MORPHINE SULFATE 4 MG/ML SYR/VIAL IV PRN ×2 (02:48→10:21)
[2019-04-13] MEDS: SODIUM CHLORIDE 0.9% 1,000 ML IV SCH (05:04)
[2019-04-13] MEDS: guaiFENesin-CODEINE LIQUID 5 ML UD PO SCH (05:30)
[2019-04-13 05:47] VITALS: BP 139/73
[2019-04-13 06:36] LABS: Hematocrit 29.9 % (36.0-46.0); Hemoglobin 10.1 g/dL (12.2-16.2); Mean Corpuscular Hemoglobin 30.1 pg (28.0-32.0); Mean Corpuscular Hgb Conc. 33.9 g/dL (32.0-36.0); Mean Corpuscular Volume 88.8 fL (80.0-100.0); Platelet Count (auto) 338 10^3/uL (140-450); Red Blood Cells 3.36 10^6/uL (4.0-5.20); Red Cell Distribution Width 15.9 % (11.8-14.3); White Blood Cell 22.7 10^3/uL (4.4-10.8)
[2019-04-13 06:44] LABS: Basophils % (manual) 0 (0.0-2.0); Blast Cells 0; Eosinophils % (manual) 0 (0-7); Promyelocytes % 0; Reactive Lymphocytes 0
[2019-04-13 06:53] LABS: Albumin 1.6 g/dL (3.4-5.0); Calcium 7.1 mg/dL (8.5-10.1); Potassium 3.7 mmol/L (3.5-5.1)
[2019-04-13 07:03] LABS: BUN/Creatinine Ratio 15.6; Bilirubin, Total 0.3 mg/dL (0.2-1.0); Total Protein 6.1 g/dL (6.4-8.2)
[2019-04-13] MEDS: IPRATROPIUM BROM 0.5 MG/2.5ML INH SOL NEB PRN (07:12)
[2019-04-13] MEDS: LEVALBUTEROL HCL 1.25 MG/3 ML NEB NEB SCH ×3 (07:12→12:58)
[2019-04-13 07:43] LABS: Band Neutrophils % (manual) 24; Lymphocytes % (manual) 2 (10.0-50.0); Metamyelocytes % 1; Monocytes % (manual) 2 (0-12); Myelocytes % 1
[2019-04-13] MEDS: Ensure Pudding Vanilla 4 oz Cup PO SCH ×2 (08:00→12:06)
[2019-04-13 09:00] VITALS: BP 127/74
[2019-04-13] MEDS ORDERED: predniSONE 20 MG TAB PO SCH (10:00)
--- NOTE | 2019-04-13 10:00 | NUR ---
Anderson catheter dc'd Order to discontinue anderson catheter. Anderson dc'd with clean technique following deflation of balloon. Patient tolerated well with no complaints of pain. Continue care.
[2019-04-13] MEDS: PANTOPRAZOLE 40 MG TAB PO SCH (10:20)
[2019-04-13] MEDS: ONDANSETRON HCL 4 MG/2 ML VIAL IV PRN (10:20)
[2019-04-13] MEDS: ENOXAPARIN SOD 40 MG/0.4 ML SYRINGE SC SCH (10:20)
[2019-04-13] MEDS: cefTRIAXone 1GM/50ML D5W 50 ML IV SCH (10:21)
--- NOTE | 2019-04-13 10:55 | NUR ---
Hospitalist at bedside Olivarez at bedside, aware of patient's status including patient c/o pain. MAR signed and Morphine iv continued at SNF per MD Olivarez. spoke to pt and pt's son at bedside and notified of POC. Will dc as ordered
[2019-04-13] MEDS: VANCOMYCIN 1GM/250ML 250 ML IV SCH (12:00)
[2019-04-13 13:00] VITALS: BP 141/70
--- NOTE | 2019-04-13 13:00 | NUR ---
Respiratory note: PT REFUSED HER SCHEDULED 1200 MED NEB TX. PT STATES THAT THE TX'S HURT HER NOSE AND THAT SHE DOES NOT FEEL SOB AT THIS TIME. B/S ARE CLEAR THROUGHOUT POSTERIORLY. POX 100%, HR 96, RR 14 ON 3L NC. NO RESPIRATORY DISTRESS NOTED.
--- NOTE | 2019-04-13 13:34 | NUR ---
Report called to [facility] spoke to Ariana valdez receiving nurse at [facility]. All questions addressed. Nurse informed that patient been transported with IV for pain meds prn as orderd by MD Olivarez. Confirmed with Doctor Sher that patient can be transferred with IV. I spoke to Brea and she confirmed with [facility] that patient will be transferred with IV. Awaiting EMR pick up worker. Patient's son at bedside and aware of POC and transfer including ordered IV meds prn.
--- NOTE | 2019-04-13 14:16 | NUR ---
Discharge instructions given as ordered. Encourage to follow up with PMD and specialists as instructed. All questions and concerns addressed. Patient verbalized understanding. Medication reconciliation form completed and copy given to patient. Patient been transferred to [facility] with IV with catheter intact as ordered by Nicole Jo. Patient taken by EMR personnel via gurney with all personal belongings, accompanied by staff and portable oxygen. No distress noted at time of departure.
--- NOTE | 2019-04-13 15:37 | NUR ---
D/C Planning Followed up call to [facility] regarding Pt being d/c today. Per Mercedes from [facility] Pt has been moved to room [address] MD [address] Lucas. Contacted [facility] Ph:) spoke to Mak. Advised Mak from [facility] to arrange transportation at 14:15 via [employer]. Advised NATE Silvestre. Addendum: 04/13/19 at 1545 by TOMAS ONEAL SS Amended: Links added.
== END 2019-04-13 14:16 | DRG 854 ==
LOC: EDBD 13:43 → ER 13:45 → OVERFLOW 13:46 → WEST WING 22:34
PROVIDERS: ADMIT Internal Medicine; ATTEND Family Medicine
PROC: 0MBL0ZZ Excision of Right Hip Bursa and Ligament, Open Approach (ICD-10-PCS; 2019-04-08)
PROC: 0SRR0JZ Replacement of Right Hip Joint, Femoral Surface with Synthetic Substitute, Open Approach (ICD-10-PCS; principal; 2019-04-08 16:33)
PROC: 30233N1 Transfusion of Nonautologous Red Blood Cells into Peripheral Vein, Percutaneous Approach (ICD-10-PCS; 2019-04-11)
DX: A41.9 Sepsis, unspecified organism (principal); M84.451A Pathological fracture, right femur, initial encounter for fracture; C79.31 Secondary malignant neoplasm of brain; C34.11 Malignant neoplasm of upper lobe, right bronchus or lung; W18.39XA Other fall on same level, initial encounter; E86.0 Dehydration; M70.61 Trochanteric bursitis, right hip; F41.9 Anxiety disorder, unspecified; R59.0 Localized enlarged lymph nodes; D64.9 Anemia, unspecified; K86.89 Other specified diseases of pancreas; D72.829 Elevated white blood cell count, unspecified; T45.8X5A Adverse effect of other primarily systemic and hematological agents, initial encounter; J44.9 Chronic obstructive pulmonary disease, unspecified; Z85.118 Personal history of other malignant neoplasm of bronchus and lung; Y92.481 Parking lot as the place of occurrence of the external cause; Y93.89 Activity, other specified; Y99.8 Other external cause status; Z88.0 Allergy status to penicillin; Z87.891 Personal history of nicotine dependence; Z79.899 Other long term (current) drug therapy
CPT/HCPCS: 36415; 71045; 71250; 73501; 73502; 73700; 76705; 80053; 80202; 81001; 82105; 82607; 82728; 82746; 83540; 83550; 83615; 83880; 84484; 85007; 85014; 85018; 85025; 85027; 85610; 85730; 86850; 86900; 86901; 86920; 87040; 87086; 93005; 93306; 94640; 96361; 96365; 96375; 97110; 97116; 97163; 97530; C1776; G0378; J0131; J0330; J0696; J2001; J2250; J2405; J3490